=== PATIENT | male | born 1955 | race Caucasian/White ===

== ENCOUNTER 2023-08-13 13:49 | Outpatient (CLI) | payer MEDICARE | END 2023-08-13 13:50 | disposition home or self-care (01) | LOC: CSHCP 13:49 | PROVIDERS: ATTEND Internal Medicine Cardiovascular Disease | DX: R06.02 Shortness of breath (principal); J44.9 Chronic obstructive pulmonary disease, unspecified | CPT/HCPCS: 94060; 94726; 94729; 94760 ==